=== PATIENT | female | born 1985 | race Hispanic/Latino ===

== ENCOUNTER 2022-06-25 08:27 | Emergency (ER) | payer OTHER ==
[~2022-06-25] VITALS: Ht 162.6 cm; Wt 86.2 kg
[2022-06-25 11:39] VITALS: BP 103/68
== END 2022-06-25 11:45 | disposition home or self-care (01) ==
LOC: EDH 08:27
DX: S80.12XA Contusion of left lower leg, initial encounter (principal); S60.222A Contusion of left hand, initial encounter; S20.214A Contusion of middle front wall of thorax, initial encounter; S00.83XA Contusion of other part of head, initial encounter; V89.2XXA Person injured in unspecified motor-vehicle accident, traffic, initial encounter; Y93.89 Activity, other specified; Y92.89 Other specified places as the place of occurrence of the external cause; Y99.8 Other external cause status
CPT/HCPCS: 70450; 71045; 73590; 81025